=== PATIENT | female | born 1990 | race Caucasian/White ===

== ENCOUNTER 2022-10-02 02:10 | Emergency (ER) | payer OTHER ==
[~2022-10-02] VITALS: Ht 160 cm; Wt 127.0 kg
[2022-10-02 02:14] VITALS: BP 135/95
--- NOTE | 2022-10-02 02:19 | NUR ---
TO BED 4 FOLLOWING TRIAGE AND AFTER OBTAINING UA
--- NOTE | 2022-10-02 02:35 | NUR ---
BIB self with c/o 04/09 RLQ abd pain that started today. per pt, pain feels sharp and . c/o nausea and episode of vomiting at home, and episodes of diarrhea. pt states she has been difficulty urinating and urine noted bloody when collected. denies any allergies. pmhx kidney infection
--- NOTE | 2022-10-02 02:51 | NUR ---
Urine collected and sent to lab
[2022-10-02 03:02] LABS: APPEARANCE,URINE CLEAR (CLEAR); BILIRUBIN,URINE NEGATIVE (NEGATIVE); BLOOD, URINE LARGE (NEGATIVE); COLOR,URINE YELLOW (YELLOW); LEUKOCYTE ESTERASE ,URINE TRACE (NEGATIVE); NITRITE, URINE POSITIVE (NEGATIVE); UGLUCOSE NEGATIVE (NEGATIVE)
[2022-10-02 03:04] LABS: RBC,URINE TOO NUMEROUS TO COUN /HPF (0-5)
[2022-10-02] MEDS ORDERED: KETOROLAC 30 MG/ML VIAL IVP ONE (03:15)
[2022-10-02] MEDS ORDERED: ONDANSETRON 4 MG/2 ML VIAL IVP ONE (03:15)
[2022-10-02] MEDS ORDERED: MORPHINE SULFATE 4 MG/ML SYR IVP ONE (03:15)
[2022-10-02 03:30] LABS: BASOPHILS % (AUTO) 0.3 % (0.0-2.0); EOSINOPHILS # (AUTO) 0.1 K/uL (0-0.4); EOSINOPHILS % (AUTO) 1.1 % (0.0-4.0); HEMATOCRIT 34.3 % (36-48); HEMOGLOBIN 11.4 g/dL (12.0-16.0); LYMPHOCYTES # (AUTO) 2.1 K/uL (2.5-16.5); LYMPHOCYTES % (AUTO) 22.4 % (20.5-51.1); MEAN CORPUSCULAR HEMOGLOBIN 28 pg (27-31); MEAN CORPUSCULAR HGB CONC 33 g/dL (33-37); MONOCYTES # (AUTO) 0.5 K/uL (0.8-1.0); MONOCYTES % (AUTO) 5.2 % (1.7-9.3); NEUTROPHILS # (AUTO) 6.6 K/uL (1.8-7.7); PLATELET COUNT (AUTO) 342 K/uL (140-450); RED BLOOD CELL COUNT(AUTO) 4.08 MIL/uL (4.20-5.40); RED CELL DISTRIBUTION WIDTH 15.5 % (11.6-13.7); WHITE BLOOD COUNT (AUTO) 9.3 K/uL (4.8-10.8)
[2022-10-02 03:42] LABS: ALBUMIN 3.7 g/dL (3.4-5.0); ANION GAP 11.2 (8-16); CARBON DIOXIDE 25.5 mmol/L (21-32); CREATININE 0.8 mg/dL (0.6-1.3); POTASSIUM 3.7 mmol/L (3.5-5.1); TOTAL BILIRUBIN 0.4 mg/dL (0.0-1.0)
--- NOTE | 2022-10-02 03:46 | NUR ---
Pt taken to CT.
--- NOTE | 2022-10-02 04:17 | NUR ---
Pt reports 4/10 pain at this time after pain medication given as ordered.
[2022-10-02] MEDS ORDERED: NACL 0.9% 1,000 ML IV ONE (04:35)
[2022-10-02] MEDS ORDERED: cefTRIAXone 1,000 MG VIAL ONE (04:41)
[2022-10-02] MEDS ORDERED: CEPH-588 PO (04:44)
[2022-10-02] MEDS ORDERED: NAPR-54 PO (04:44)
[2022-10-02] MEDS ORDERED: PYR100 PO (04:44)
--- NOTE | 2022-10-02 04:50 | NUR ---
ERMD by bedside
--- NOTE | 2022-10-02 05:01 | NUR ---
IV fluids and antibiotic started as ordered. Pt states 4/10 pain at this time.
[2022-10-02 05:30] VITALS: BP 110/64
--- NOTE | 2022-10-02 05:30 | NUR ---
Patient discharged with v/s stable. Written and verbal after care instructions given and explained. New orders for keflex, naproxen and pyridium. Patient verbalized understanding. Ambulatory with steady gait, pt picked up by for ride home. All questions addressed prior to discharge. Advised to follow up with PMD.
--- NOTE | 2022-10-06 09:40 | NUR ---
LATE ENTRY -- CONFIRMED WITH NURSE NS INFUSION COMPLETED AT 0559 10/02/22
--- NOTE | 2022-10-06 12:01 | NUR ---
LATE ENTRY -- CONFIRMED WITH NURSE ROCEPHIN INFUSION COMPLETED AT 0520 10/02/22
== END 2022-10-02 05:30 | disposition home or self-care (01) ==
LOC: MED 02:10
DX: N39.0 Urinary tract infection, site not specified (principal); Z79.899 Other long term (current) drug therapy; Z87.442 Personal history of urinary calculi
CPT/HCPCS: 36415; 74176; 80053; 81001; 81025; 83690; 85025; 87086; 96365; 96375; 99285; J0696; J1885; J2270; J2405; J7030